=== PATIENT | male | born 1980 | race Two or more races ===

== ENCOUNTER 2017-04-27 13:17 | Emergency (ER) | payer SELFPAY ==
[~2017-04-27] VITALS: Ht 172.7 cm; Wt 90.7 kg
[2017-04-27 16:20] VITALS: BP 119/73
[2017-04-27] MEDS ORDERED: LIDOCAINE 1% HCL (LOCAL ANESTH.) INJ 20ML MDV IN ONE (16:30)
[2017-04-27] MEDS ORDERED: LIDOCAINE 1% HCL (LOCAL ANESTH.) INJ 20ML MDV ONE (16:38)
== END 2017-04-27 17:38 | disposition home or self-care (01) ==
LOC: ER 13:24
DX: S51.812A Laceration without foreign body of left forearm, initial encounter (principal); X58.XXXA Exposure to other specified factors, initial encounter; Y93.89 Activity, other specified; Y92.89 Other specified places as the place of occurrence of the external cause; Y99.8 Other external cause status
CPT/HCPCS: 12034; 99284; J2001